=== PATIENT | female | born 1950 | race Caucasian/White ===

== ENCOUNTER → 2018-01-24 | Outpatient (CLI) | payer OTHER ==
[~2018-01-24] VITALS: Ht 157.5 cm; Wt 83.5 kg
[~2018-01-24] MED LIST: ARIMIDEX1 MG PO; Arimidex PO; CALCIUM 500 +1 EACH PO; CARDURA8 MG PO; COZAAR50 MG PO; Caltrate 600/200 PO; Cardura PO; DOXAZOSIN MESYLA4 MG PO; Diovan PO; Ecotrin PO; Feosol PO; HYDROCHLOROTHIA25 MG PO; Hydrodiuril,Oretic,E PO; NORCO 5/3251 TABLET PO; Senokot S,Pericolace PO; TAMOXIFEN CITRA20 MG PO; VITAMIN B125000 MCG PO; Vicodin,Norco 5/325 PO; celeBREX PO
== END | disposition home or self-care (01) ==
LOC: AMB 08:54
PROC: 3E0G8GC Introduction of Other Therapeutic Substance into Upper GI, Via Natural or Artificial Opening Endoscopic (ICD-10-PCS; principal; 2018-01-24)
DX: K22.0 Achalasia of cardia (principal); Z85.3 Personal history of malignant neoplasm of breast; H90.5 Unspecified sensorineural hearing loss; E66.9 Obesity, unspecified; Z68.33 Body mass index [BMI] 33.0-33.9, adult; Z86.010 Personal history of colon polyps; Z92.3 Personal history of irradiation; Z80.0 Family history of malignant neoplasm of digestive organs; Z80.3 Family history of malignant neoplasm of breast; Z80.8 Family history of malignant neoplasm of other organs or systems; Z82.0 Family history of epilepsy and other diseases of the nervous system; Z80.49 Family history of malignant neoplasm of other genital organs; Z82.49 Family history of ischemic heart disease and other diseases of the circulatory system; Z88.2 Allergy status to sulfonamides; Z88.8 Allergy status to other drugs, medicaments and biological substances
CPT/HCPCS: 93005; J0585; J2250